=== PATIENT | male | born 1950 | race Caucasian/White ===

== ENCOUNTER → 2018-05-23 | Outpatient (CLI) | payer MEDICARE, OTHER | LOC: GMAH 11:55 | PROVIDERS: ATTEND Family Medicine | DX: I10 Essential (primary) hypertension (principal) ==

== ENCOUNTER → 2018-07-29 | Outpatient (CLI) | payer MEDICARE ==
--- NOTE | 2018-07-29 11:49 | CT ---
EXAM DESCRIPTION: Abdoment/Pelvis w/o Contrast CLINICAL HISTORY: 67 years Male, GENERALIZED ADOMINAL PAIN COMPARISON: None. TECHNIQUE: Transaxial images were obtained without intravenous or oral contrast media. Sagittal and coronal reconstruction was performed. This exam was performed according to our departmental dose-optimization program, which includes automated exposure control, adjustment of the mA and/or kV according to patient size and/or use of iterative reconstruction technique. FINDINGS: The lung bases are clear. A small cyst is observed in the left lobe of the liver. Mild hepatic steatosis is noted. No biliary ductal dilatation is observed. The gallbladder is normal in appearance. The spleen is normal in appearance. No adrenal masses are detected. The pancreas is normal in appearance. Imaging of the kidneys reveals no evidence of hydronephrosis solid mass or calcification. Simple cysts are detected in the right kidney. The largest is identified in the midpole measuring 4.9 cm in diameter. The appendix is identified and is normal in appearance. Diverticulosis of the colon is observed. There is focal inflammation at the junction of the sigmoid and descending colon consistent with diverticulitis. No drainable abscess is detected. No free fluid is observed. Fat is observed in the right inguinal canal. Mild degenerative changes are observed in the lower lumbar spine. IMPRESSION: 1. Simple cysts are detected in the left lobe the liver and right kidney. 2. Diverticulosis of the colon is observed with evidence of diverticulitis. No drainable abscess is seen. Electronically signed by: Curly Landa MD 07/29/2018 11:47 AM [employer]
== END ==
LOC: CT 10:48
PROVIDERS: ATTEND Family Medicine
DX: K57.30 Diverticulosis of large intestine without perforation or abscess without bleeding (principal); K76.89 Other specified diseases of liver; R10.84 Generalized abdominal pain

== ENCOUNTER 2018-08-14 04:47 | Emergency (ER) | payer MEDICARE ==
[2018-08-14] MEDS ORDERED: KETOROLAC TROMETHAMINE INJ 30 MG/ML VIAL IV ONE (05:07)
--- NOTE | 2018-08-14 06:19 | CT ---
CT abdomen and pelvis without contrast on 08/14/2018 CLINICAL INDICATION: Left lower quadrant pain, recent diverticulitis TECHNIQUE: Multiple axial images are obtained throughout the abdomen and pelvis without the administration of contrast. This exam was performed according to our departmental dose-optimization program, which includes automated exposure control, adjustment of the mA and/or kV according to patient size and/or use of iterative reconstruction technique. Total DLP is 1204.8 mGy*cm. COMPARISON: 07/29/2018 FINDINGS: Abdomen: There is minimal bibasilar atelectasis. There is mild fatty infiltration of the liver. A small left hepatic cyst is noted. Right renal cysts are noted. There are no renal or ureteral stones and no hydronephrosis. The unenhanced solid abdominal organs are otherwise unremarkable. There is no abdominal adenopathy. There is no free fluid or free air within the abdomen. There is new fat stranding around a diverticulum in the proximal descending colon seen on image 59 consistent with mild acute diverticulitis. There is diverticulosis. The abdominal portion of the GI tract is otherwise unremarkable. Pelvis: Previously noted inflammation around the sigmoid colon diverticulum has resolved. There is diverticulosis. The pelvic portion of the GI tract including the appendix is otherwise unremarkable. There is no free fluid in the pelvis. There is no pelvic adenopathy. Degenerative changes are noted in the spine. IMPRESSION: 1. Resolution of prior site of sigmoid colon diverticulitis with development of a new mild site of acute proximal descending colon diverticulitis. 2. Diverticulosis throughout the colon. 3. Mild fatty infiltration of the liver. Electronically signed by: Ayo Reyes 08/14/2018 6:15 AM [facility]
[2018-08-14] MEDS ORDERED: metroNIDAZOLE IV PREMIX 500MG 100 ML IVPB ONE (06:28)
[2018-08-14] MEDS ORDERED: metroNIDAZOLE IV PREMIX 500MG 500 MG in PREMIX BAG 1 BAG IVPB ONE (06:28)
[2018-08-14] MEDS ORDERED: CIPROFLOXACIN 500 MG TAB PO ONE (06:28)
--- NOTE | 2018-08-14 06:33 | ED.PDOC ---
History of Present Illness - General Chief Complaint: Abdominal Pain Stated Complaint: ABD PAIN POSS DIVERTICULITIS Time Seen by Provider: 08/14/18 04:54 Source: patient Exam Limitations: no limitations - History of Present Illness Initial Comments: the patient's 67-year-old male presenting to the emergency room secondary to recurrent left lower abdominal pain. The patient was treated for diverticulitis little more than 2 weeks ago. He was having no symptoms for the for 5 or 6 days when he started having a recurrence of some left-sided abdominal pain. No fevers. No nausea vomiting or diarrhea. He has been taking a probiotic. No evidence of sepsis. Timing/Duration: 24 hours Severity: mild Improving Factors: nothing Worsening Factors: nothing Associated Symptoms: denies symptoms Allergies/Adverse Reactions: Allergies Codeine Adverse Reaction (Verified 08/14/18 04:52) Home Medications: Ambulatory Orders Ciprofloxacin [Cipro] 500 mg PO BID #20 tab 08/14/18 Losartan Potassium [Cozaar] 100 mg PO 08/14/18 Metoprolol Tartrate [Lopressor] 100 mg PO 08/14/18 Metronidazole 500 mg PO TID #30 tab 08/14/18 Review of Systems - Review of Systems Constitutional: States: no symptoms reported EENTM: States: no symptoms reported Respiratory: States: no symptoms reported Cardiology: States: no symptoms reported Gastrointestinal/Abdominal: States: abdominal pain Genitourinary: States: no symptoms reported Musculoskeletal: States: no symptoms reported Skin: States: no symptoms reported Neurological: States: no symptoms reported Endocrine: States: no symptoms reported All other Systems: No Change from Baseline Past Medical History (General) - Patient Medical History Hx Stroke: No Hx Hypertension: Yes Hx Diabetes: No Hx Cancer: No Hx Hepatitis C: No - Vaccination History Hx Influenza Vaccination: Yes Hx Pneumococcal Vaccination: No Immunizations Up to Date: No - Social History Hx Tobacco Use: Yes Hx Alcohol Use: Yes - OCC Hx Substance Use: No Hx Substance Use Treatment: No Hx Depression: No Family Medical History - Family History Mother Family History: No Known Living Status: Physical Exam - Physical Exam General Appearance: Alert, Comfortable, No apparent distress Eye Exam: bilateral normal Ears, Nose, Throat: hearing grossly normal, normal ENT inspection Neck: full range of motion, supple Respiratory: lungs clear, normal breath sounds, no respiratory distress, no accessory muscle use Cardiovascular/Chest: normal peripheral pulses, regular rate, rhythm, no edema Peripheral Pulses: radial,right: 2+, radial,left: 2+ Gastrointestinal/Abdominal: soft, other - mild left-sided abdominal discomfort palpation. No true rebound or peritoneal signs. 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 White blood cell count is within normal limits and there is no evidence of sepsis or abscess formation. he is going to undergo another course of 10 days of metronidazole and ciprofloxacin. He needs to take MiraLAX twice daily for the next 2 days to get cleaned out. He needs to keep himself well hydrated. If he worsens rather than improves, then he will need antibiotics changed and if he starts having significant diarrhea after the laxatives are out of his system then he may require testing for C. difficile. Continue the probiotics. ER warnings were given for any worsening. Follow up with primary care doctor early this coming week. - Results/Orders Results/Orders: CT scan of abdomen and pelvis shows resolution of the previous site of diverticulitis however there is a new small sided diverticulitis just proximal to that. No abscess formation. No perforation. No other new changes. Laboratory Results - last 24 hr 08/14/18 08/14/18 08/14/18 05:22 05:22 05:22 WBC 7.6 RBC 5.02 Hgb 15.3 Hct 46.7 MCV 93.0 MCH 30.4 MCHC 32.7 L RDW 12.7 Plt Count 224 MPV 9.0 Absolute Neuts (auto) 4.70 Absolute Lymphs (auto) 1.90 Absolute Monos (auto) 0.80 Absolute Eos (auto) 0.10 Absolute Basos (auto) 0.00 Neutrophils % 61.6 Lymphocytes % 25.7 Monocytes % 10.7 H Eosinophils % 1.4 Basophils % 0.6 Sodium 140 Potassium 3.6 Chloride 104 Carbon Dioxide 24 Anion Gap 15.6 BUN 17 Creatinine 1.61 H BUN/Creatinine Ratio 10.6 Random Glucose 102 Serum Osmolality 281.1 Lactic Acid 1.7 Calcium 8.6 Total Bilirubin 1.2 H AST 32 ALT 54 Alkaline Phosphatase 73 Creatine Kinase 41 CK-MB (CK-2) 0.9 CK-MB (CK-2) % Not Reportable Troponin I < 0.02 Serum Total Protein 6.8 Albumin 3.8 Globulin 3.0 Albumin/Globulin Ratio 1.3 Departure - Departure Clinical Impression: Diverticulitis Disposition: Discharge to Home or Self Care Condition: Fair Departure Forms: ED Discharge - Pt. Copy, Patient Portal Self Enrollment Instructions: Diverticulitis (DC) Diet: regular diet - High-fiber low-fat Activity: increase activity as tolerated Referrals: Tejas Tena MD [Primary Care Provider] - 1-5 Days Prescriptions: Ciprofloxacin [Cipro] 500 mg PO BID #20 tab Metronidazole 500 mg PO TID #30 tab Home Medications: Ambulatory Orders Ciprofloxacin [Cipro] 500 mg PO BID #20 tab 08/14/18 Losartan Potassium [Cozaar] 100 mg PO 08/14/18 Metoprolol Tartrate [Lopressor] 100 mg PO 08/14/18 Metronidazole 500 mg PO TID #30 tab 08/14/18 Additional Instructions: the patient is a 67-year-old male presenting to the emergency room secondary to what appears to be a new episode of diverticulitis, as confirmed by CT scan. White blood cell count is within normal limits and there is no evidence of sepsis or abscess formation. he is going to undergo another course of 10 days of metronidazole and ciprofloxacin. He needs to take MiraLAX twice daily for the next 2 days to get cleaned out. He needs to keep himself well hydrated. If he worsens rather than improves, then he will need antibiotics changed and if he starts having significant diarrhea after the laxatives are out of his system then he may require testing for C. difficile. Continue the probiotics. ER warnings were given for any worsening. Follow up with primary care doctor early this coming week. avoid alcohol with the antibiotics and try and take them with a little bit of food.
[2018-08-14 07:40] VITALS: BP 140/88; TEMP 97.8; O2SAT 97
== END 2018-08-14 07:42 | disposition home or self-care (01) ==
LOC: ER 04:47
DX: K57.32 Diverticulitis of large intestine without perforation or abscess without bleeding (principal); I10 Essential (primary) hypertension; Z88.5 Allergy status to narcotic agent; Z87.891 Personal history of nicotine dependence; Z79.899 Other long term (current) drug therapy
CPT/HCPCS: 74176; 80053; 82550; 82553; 83605; 84484; 85025; 87040; J1885; J3490

== ENCOUNTER 2018-08-16 16:07 | Inpatient (IN) | payer MEDICARE ==
--- NOTE | 2018-08-16 16:09 | HP ---
SUPERVISING PHYSICIAN: Micha Amezcua MD CHIEF COMPLAINT: Abdominal pain. HISTORY OF PRESENT ILLNESS: Mr. Arango is a 67 year-old patient with a history of diverticulosis. On July 29, he had a flare-up, was seen in Dr. Tena's office and placed on a 10-day course of Cipro and Flagyl. He was 2 days past finish of the course of medications, was feeling well, suddenly became symptomatic again and had to be seen in the Emergency Room. He was seen in the Emergency Room this past August 14. He had a CT of the abdomen, at that point it indicated he had resolution to the previous site of sigmoid colon diverticulitis with development of a new site of acute proximal descending colon diverticulosis. He was started once again on antibiotics but continued to worsen and presented to Dr. Tena's office today with increasing pain. He is now going to be admitted for failing outpatient treatment for acute diverticulitis. He is admitted in stable condition. PAST MEDICAL HISTORY: 1. Diverticulosis with frequent flare-ups of diverticulitis within the last month. 2. 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 3 Hypertension. 4. Gastroesophageal reflux disease. PAST SURGICAL HISTORY: 1. Necrotized area resized on his left arm from a recluse bite in 1997. 2. Shattered clavicle open reduction and internal fixation on the left in 2003 with chronic nerve damage secondary to fracture of his neck in 2004. 3. Rhinoplasty. 4. Last colonoscopy was approximately 6 years previous with patient reporting all negative findings. CURRENT MEDICATIONS: 1. Lopressor 100 mg daily. 2. Losartan 100 mg daily as needed. ALLERGIES: CODEINE. FAMILY HISTORY: Mother at age 79 secondary to complications of diverticulitis. Father at age 73 from Parkinson's. He had 3 sisters, one from aneurysm at age 50. He has one who has diverticulitis, chronic obstructive pulmonary disease. One is obese with diabetes mellitus and hypertension. He has one brother that is younger and is healthy. He has 2 children, a son and daughter who are healthy. SOCIAL HISTORY: The patient lives in [place], [place]. He is . 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 He has never smoked but has used smokeless tobacco since age 17. He was a heavy alcohol drinker, approximately half of fifth to a fifth of whiskey on weekends and daily from 2007 to approximately 6 months previous. He denies any illicit drug use. He lives with one of his sisters in [place], [place]. REVIEW OF SYSTEMS: CONSTITUTIONAL: Denies fever, chills, general malaise. HEENT: Negative for headaches, vision changes, ear aches, sore throat, nasal congestion. RESPIRATORY: Negative for wheezing, coughing, shortness of breath. CARDIAC: Negative for chest pain, palpitations, tachycardia or syncopal episodes. GI: As noted in history of present illness. Left upper quadrant pain, recently treated for diverticulitis with some reported diarrhea but negative for nausea or vomiting. : Denies dysuria, hematuria, polyuria. NEUROLOGICAL: Negative for seizures, ataxia or syncopal episodes, vision changes or focal deficits. PHYSICAL EXAMINATION: VITAL SIGNS: Temperature on admission 98, pulse 54, blood pressure 126/80, respirations 16, saturation 98% on room air. Admission weight 103.9 kg. GENERAL: The patient appears a little dehydrated. He has been in some obvious distress secondary to pain but is alert. HEENT: Tympanic membranes are clear bilaterally. Oropharynx is pink, moist without any lesions. NECK: Supple with some limited range of motion but non-tender with no jugular venous distention. CHEST: Lungs clear to auscultation without rhonchi, rales, or wheezes. CARDIOVASCULAR: Regular rate and rhythm without appreciable murmurs, rubs, or gallops. ABDOMEN: Mildly distended but soft with some tenderness noted to the left upper quadrant with some rebound tenderness and guarding. GENITOURINARY: Deferred. RECTAL: Deferred. BACK: Negative for CVA tenderness or vertebral tenderness. EXTREMITIES: Without cyanosis, clubbing, or edema. NEUROLOGIC: He is alert and oriented x3. Cranial nerves II through XII are grossly intact. Facial features were symmetrical. Extraocular movements within normal limits. LABORATORY: White count 5,200, differential shows to be without a left shift. Current hemoglobin 14.6, hematocrit 43.4, platelet count 189,000. Chemistries show sodium 136, potassium 3.9, BUN 16, creatinine elevated at 1.36, glucose 106, calcium 8.7. AST was slightly elevated at 47. All other liver functions show to be within normal limits as well as amylase and lipase. Urinalysis pending. RADIOLOGY: Abdominal pelvic CT with contrast per radiology interpretation showed interval improved mild diverticulitis at the superior aspect of the descending colon and hepatic steatosis. ASSESSMENT: 1. Acute flare-up of diverticulosis with diverticulitis involving the superior aspect of the descending colon, having failed to respond to treatment measures as an outpatient to include antibiotics with Levaquin and ciprofloxacin. 2. Abdominal pain secondary to #1. 3. Hepatic steatosis in a previous drinker as noted on current CT scan. 4. History of hypertension. 5. History of gastroesophageal reflux disease. 6. History of smokeless tobacco use, nicotine addiction. 7. 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 8, Acute kidney injury, prerenal azotemia secondary to dehydration. PLAN: The patient will be directly admitted for treatment of diverticulitis and failed outpatient treatment measures. He will be made n.p.o. He will be started on some IV fluids to treat the dehydration with lactated ringers at 150. Will start him on Flagyl 500 every 8 hours as well as 750 of Levaquin every 24 hours. Will give him Phenergan and Zofran as needed for antiemetics and work to control his pain on on morphine as tolerated. We will review the medications and update those and restart those as soon as they have been verified. He will be on DVT prophylaxis with Levaquin as per protocol and Lovenox per protocol. Will anticipate length of stay to be at least 2 to 3 days. Will repeat labs in the morning and abdominal series. Until he can transition to outpatient management, we will continue to monitor and treat as needed. #[id number] [facility]
[2018-08-16] MEDS ORDERED: SODIUM CHLORIDE 0.9% (FLUSH) 10 ML SYG IV PRN (17:01)
[2018-08-16] MEDS ORDERED: ONDANSETRON INJ 4 MG/2 ML VIAL IV PRN (17:01)
[2018-08-16] MEDS ORDERED: MORPHINE SULFATE INJ 10 MG/ML VIAL IV PRN (17:01)
[2018-08-16] MEDS ORDERED: PROMETHAZINE HCL INJ 12.5 MG in SODIUM CHLORIDE 0.9% 50ML 50 ML IVPB PRN (17:04)
[2018-08-16] MEDS ORDERED: IV SET AND CAP CHANGE INJ INJ SCH (17:30)
[2018-08-16] MEDS ORDERED: levoFLOXacin 750MG IV 750 MG in PREMIX BAG 1 BAG IVPB SCH (18:00)
[2018-08-16] MEDS: LACTATED RINGERS 1,000 ML IVS PRN (18:09)
[2018-08-16] MEDS ORDERED: metroNIDAZOLE IV PREMIX 500MG 100 ML IVPB ONE ×2 (18:19→19:39)
[2018-08-16] MEDS ORDERED: diphenhydrAMINE HCL 50 MG/ML VIAL IV ONE (19:06)
--- NOTE | 2018-08-16 19:30 | CT ---
EXAM: CT Abdomen and Pelvis With Intravenous Contrast CLINICAL HISTORY: The patient is 67 years old and is Male; Acute diverticulitis failing to respond to [place] TECHNIQUE: Axial computed tomography images of the abdomen and pelvis with intravenous contrast. Sagittal and coronal reformatted images were created and reviewed. This CT exam was performed using one or more of the following dose reduction techniques: automated exposure control, adjustment of the mA and/or kV according to patient size, and/or use of iterative reconstruction technique. COMPARISON: July 29, 2018 and August 14, 2018 FINDINGS: Lung bases: Unremarkable. No mass. No consolidation. ABDOMEN: Liver: Subcentimeter liver hypodensity in the left lower liver, likely cyst. Diffuse low-attenuation throughout the liver consistent with hepatocellular disease/fatty infiltration. No focal liver lesion seen. Gallbladder and bile ducts: Unremarkable. No calcified stones. No ductal dilation. Pancreas: Unremarkable. No mass. No ductal dilation. Spleen: Unremarkable. No splenomegaly. Adrenals: Unremarkable. No mass. Kidneys and ureters: Unchanged right renal cysts. No hydronephrosis. Stomach and bowel: Interval improved mild diverticulitis at the superior aspect of the descending colon. No obstruction. PELVIS: Appendix: The appendix is seen and is within normal limits Bladder: Unremarkable. No mass. Reproductive: Unremarkable as visualized. ABDOMEN and PELVIS: Intraperitoneal space: Unremarkable. No free air. No significant fluid collection. Bones/joints: No acute fracture. No dislocation. Soft tissues: Unremarkable. Vasculature: Unremarkable. No abdominal aortic aneurysm. Lymph nodes: Unremarkable. No enlarged lymph nodes. IMPRESSION: 1. Interval improved mild diverticulitis at the superior aspect of the descending colon. 2. Hepatic steatosis. Electronically signed by: Moe Giang MD 08/16/2018 7:27 PM [facility]
[2018-08-16] MEDS: metroNIDAZOLE IV PREMIX 500MG 500 MG in PREMIX BAG 1 BAG IVPB SCH (20:48)
[2018-08-17] MEDS: metroNIDAZOLE IV PREMIX 500MG 500 MG in PREMIX BAG 1 BAG IVPB SCH ×3 (01:54→17:50)
[2018-08-17] MEDS: LACTATED RINGERS 1,000 ML IVS PRN (04:40)
--- NOTE | 2018-08-17 07:56 | RAD ---
EXAM DESCRIPTION: Abdomen Flat Upright CLINICAL HISTORY: 67 years Male, diverticulitis COMPARISON: None. FINDINGS: Supine and upright views of the abdomen. Bowel gas pattern normal. No free intraperitoneal air. Lung bases clear. No mass or calculus. IMPRESSION: Negative Electronically signed by: Hank Lira MD 08/17/2018 7:53 AM [facility]
[2018-08-17] MEDS ORDERED: NON-FORMULARY MEDICATION 1 EA MIS (Metoprolol Tartrate [Lopressor] 100 MG) PO SCH (09:00)
[2018-08-17] MEDS ORDERED: METOPROLOL TARTRATE 50 MG TAB ONE (09:10)
[2018-08-17] MEDS ORDERED: metroNIDAZOLE IV PREMIX 500MG 100 ML IVPB ONE ×3 (09:13→19:18)
[2018-08-17] MEDS: ENOXAPARIN SODIUM 40 MG/0.4 ML SYG SUBCU SCH (09:44)
[2018-08-17] MEDS: METOPROLOL TARTRATE 50 MG TAB PO SCH (09:44)
[2018-08-17] MEDS ORDERED: levoFLOXacin 750MG IV 750 MG in PREMIX BAG 1 BAG IVPB SCH (16:00)
--- NOTE | 2018-08-17 18:07 | PN ---
DATE: 08/17/18 SUPERVISING PHYSICIAN: Micha Amezcua M.D. SUBJECTIVE: The patient today feels much better. He says the pain is essentially gone. I discussed with him that we would go ahead and advance him to clear liquid diet today with antibiotics and work to advance his diet. Hopefully get him home tomorrow or Wednesday. He does remain afebrile. He did have a stool though that was normal caliber. OBJECTIVE: VITAL SIGNS: Temperature 98, pulse 58, blood pressure 151/90, respirations 16, satting 94% on room air. I's and O's show a positive balance of 900 with 1200 in, 300 out. Weight is 104.1 kg. CHEST: Lugs are clear to auscultation. HEART: Regular rate and rhythm. ABDOMEN: Soft, non-tender. Positive bowel sounds. EXTREMITIES: Without any cyanosis, clubbing, or edema. NEUROLOGIC: He is alert and oriented times three. LABORATORY: Chemistries show normal electrolytes today with BUN 15, creatinine is slightly up to 1.51. RADIOLOGY: Abdominal x-ray this morning per radiology interpretation shows negative exam. ASSESSMENT: 1. Acute diverticulitis having failed to respond to outpatient treatment measures involving the superior aspect of the descending colon, currently on Levaquin and Flagyl showing improvement with parenteral antibiotics. 2. Abdominal pain secondary to #1, resolving with treatment. 3. Hepatic steatosis in a previous drinker as noted on current CT scan. 4. History of hypertension. 5. History of gastroesophageal reflux disease. 6. History of chronic tobacco abuse in the form of smokeless tobacco. 7. 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 8. Acute kidney injury, prerenal azotemia due to dehydration showing slow improvement with treatment. PLAN: Will go ahead and saline lock the patient today and start him on oral therapy with clear liquids. I encouraged him to drink water. I have also encouraged him to ambulate as much as possible. He will, of course, have Phenergan and Zofran and morphine as needed for any discomfort or nausea. Hopefully be able to advance his diet tomorrow and discharge later tomorrow afternoon or if not, Wednesday. Until we can transition to outpatient management, will continue to monitor and treat as needed. [facility][id number] [facility]
[2018-08-18] MEDS: metroNIDAZOLE IV PREMIX 500MG 500 MG in PREMIX BAG 1 BAG IVPB SCH ×2 (01:58→11:05)
[2018-08-18] MEDS: METOPROLOL TARTRATE 50 MG TAB PO SCH (08:30)
[2018-08-18] MEDS ORDERED: metroNIDAZOLE IV PREMIX 500MG 100 ML IVPB ONE (08:55)
[2018-08-18] MEDS: ENOXAPARIN SODIUM 40 MG/0.4 ML SYG SUBCU SCH (09:08)
[2018-08-18 13:35] VITALS: BP 126/86; TEMP 97.6; O2SAT 99
--- NOTE | 2018-08-29 19:47 | DS ---
SUPERVISING PHYSICIAN: Micha Amezcua M.D. ADMISSION DIAGNOSIS: 1. Acute flare-up of diverticulosis with diverticulitis involving the superior aspect of the descending colon, having failed to respond to treatment measures as an outpatient to include antibiotics with Levaquin and ciprofloxacin. 2. Abdominal pain secondary to #1. 3. Hepatic steatosis in a previous drinker as noted on current CT scan. 4. History of hypertension. 5. History of gastroesophageal reflux disease. 6. History of smokeless tobacco use, nicotine addiction. 7. 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 8, Acute kidney injury, prerenal azotemia secondary to dehydration. DISCHARGE DIAGNOSIS: 1. Acute diverticulitis having failed to respond to outpatient treatment measures involving the superior aspect of the descending colon, currently on Levaquin and Flagyl showing improvement with parenteral antibiotics. 2. Abdominal pain secondary to #1, resolving with treatment. 3. Hepatic steatosis in a previous drinker as noted on current CT scan. 4. History of hypertension. 5. History of gastroesophageal reflux disease. 6. History of chronic tobacco abuse in the form of smokeless tobacco. 7. 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 8. Acute kidney injury, prerenal azotemia due to dehydration showing slow improvement with treatment. REASON FOR HOSPITALIZATION: Mr. Arango is a 67 year-old patient with a history of diverticulosis. On July 29, he had a flare-up, was seen in Dr. Tena's office and placed on a 10-day course of Cipro and Flagyl. He was 2 days past finish of the course of medications, was feeling well, suddenly became symptomatic again and had to be seen in the Emergency Room. He was seen in the Emergency Room this past August 14. He had a CT of the abdomen, at that point it indicated he had resolution to the previous site of sigmoid colon diverticulitis with development of a new site of acute proximal descending colon diverticulosis. He was started once again on antibiotics but continued to worsen and presented to Dr. Tena's office today with increasing pain. He is now going to be admitted for failing outpatient treatment for acute diverticulitis. He is admitted in stable condition. LABORATORY STUDIES: White count on admission was 5,200, hemoglobin 14.6, hematocrit 43.4, platelet count 189,000. Differential was without a left shift. Chemistries showed normal electrolytes both on admission and discharge. Initial creatinine was 1.36, at discharge 1.38, BUN 16. Liver functions were showing within normal limits except for a slightly elevated AST at 47. Amylase and lipase were both normal. Urinalysis was within normal limits. RADIOLOGY: Abdominal/pelvis CT with contrast per radiology interpretation showed interval improved mild diverticulitis of the superior aspect of the descending colon and hepatic steatosis. Please see that full report for full details. He also had an abdominal x-ray on the after admission and per radiology interpretation showed negative per radiology. HOSPITAL COURSE: Mr. Arango was admitted on 08/16/18 for acute diverticulitis. He was started on medications to include antibiotic coverage with Flagyl and Levaquin. He was made NPO. He was given IV fluids, pain management, and antiemetics. His diet was slowly advanced as his pain resolved and clinically showed improvement. On the morning of discharge he was able to tolerate a diet without any complications, therefore he was felt to be able to continue with outpatient management. PLAN: Mr. Arango was discharged on 08/18/18 with instructions to followup with Dr. Tena on 08/23/18 at 10:00 AM. He was to resume his antibiotics as directed with the Flagyl and Levaquin and told to return to the hospital should he have any concerning symptoms. Diet at discharge was low residual diet with education material provided. Activity is increase as tolerated. Medications at discharge included Ciprofloxacin and Flagyl which was started prior to admission and to continue for a full day course of 10 days. His home medications included: 1. Cozaar 100 mg daily as needed. 2. Lopressor 100 mg daily. Condition on discharge was stable and improving. DISPOSITION: The patient was discharged to the care of family. [id number]
== END 2018-08-18 16:10 | disposition home or self-care (01) | DRG 392 ==
LOC: MS 16:07
PROVIDERS: ADMIT Family Medicine; ATTEND Nurse Practitioner Family
DX: K57.32 Diverticulitis of large intestine without perforation or abscess without bleeding (principal); N17.9 Acute kidney failure, unspecified; I10 Essential (primary) hypertension; K21.9 Gastro-esophageal reflux disease without esophagitis; G62.1 Alcoholic polyneuropathy; K76.0 Fatty (change of) liver, not elsewhere classified; E86.0 Dehydration; F10.10 Alcohol abuse, uncomplicated; Z88.5 Allergy status to narcotic agent; Z87.891 Personal history of nicotine dependence

== ENCOUNTER → 2018-09-27 | Outpatient (CLI) | payer MEDICARE ==
--- NOTE | 2018-09-27 17:32 | MRI ---
EXAM DESCRIPTION: Lumbar Spine w/o Contrast : Magnetic Resonance Imaging. CLINICAL HISTORY: RADICULOPATHY COMPARISON: None. TECHNIQUE: Multiplanar, multiple standard sequences, non contrast MRI, lumbar spine. FINDINGS: L5-S1: Posterior disc space loss with disc desiccation. Small Schmorl's node superior S1 endplate. Posterior midline disc bulge with AP canal diameter 12 mm. Minimal hypertrophic right facet arthrosis and enlarged flavum ligament with moderate narrowing of the foramen. Mild narrowing left foramen. L4-L5: Significant disc space loss more left than right with Modic type II endplate reactive changes. Superior midline bulge and osteophytes and disc remnant. Bilateral hypertrophic facet arthrosis and flavum ligament enlarged with AP canal diameter 11 mm. Right foraminal moderate narrowing and mild left foraminal narrowing. L3-L4: Disc desiccation with posterior disc space loss and posterior endplate Modic type II changes. Tiny posterior midline disc and osteophyte bulge. Bilateral mild hypertrophic facet arthrosis with enlarged flavum ligaments. Mild canal narrowing. Bilateral disc osteophyte encroachment on the foramina with mild narrowing on the left and borderline right foraminal stenosis. L2-L3: Mild disc desiccation with no significant bulging. Left inferior L2 Schmorl's node, surrounded by marrow edema. Minimal hypertrophic facet arthrosis and enlarged flavum ligaments. No significant canal narrowing. L1-L2: Minimal disc desiccation with disc space preserved. Tiny left paracentral disc bulge. Minimal hypertrophic facet arthrosis and enlarged flavum ligaments bilaterally. Borderline canal narrowing with bilateral foramina patent. T12-L1: Disc space preserved with normal signal in the disc. Posterior elements unremarkable. Canal and foramina are patent. Conus terminates just above the disc space. Minimal lumbosacral levoscoliosis and dextroscoliosis of the thoracolumbar spine. Paravertebral soft tissues paraspinal muscle atrophy. Normal marrow signal in the remaining vertebral bodies and the posterior elements. Vertebral bodies are not compressed at any level. IMPRESSION: 1. Multiple levels of foraminal narrowing and disc desiccation. Also multiple levels of hypertrophic facet arthrosis and enlarged flavum ligaments. 2. Diffuse L4-L5 disc space loss and spondylosis. Moderate narrowing of the canal. No definite nerve root impingement. 3. Posterior moderate spondylosis at L3-4. Borderline right foraminal stenosis. 4. Large Schmorl's node on the left inferior L2 endplate with surrounding marrow edema. No compression abnormality of the vertebral body. Electronically signed by: Abraham Sewell MD 09/27/2018 5:28 PM CDT
== END ==
LOC: MRI 09:10
PROVIDERS: ATTEND Family Medicine
DX: M51.16 Intervertebral disc disorders with radiculopathy, lumbar region (principal); M47.896 Other spondylosis, lumbar region; M51.46 Schmorl's nodes, lumbar region

== ENCOUNTER → 2018-12-27 | Outpatient (CLI) | payer MEDICARE ==
--- NOTE | 2018-12-27 09:38 | MRI ---
Study: MRI of the Left Hip. Indication: LEFT HIP PAIN Technique: Multiplanar, multi sequence MRI of the left hip was obtained without intravenous contrast. Comparison: CT pelvis November 04, 2018. Findings: No acute fracture or osteonecrosis of the left hip. Mild grade 4 chondrosis and subchondral marrow change lateral margin acetabular roof with grade 3 chondral thinning throughout the remainder of the joint. Tiny joint line osteophytes. Degeneration anterior superior left hip labrum with complex tearing. Tiny cam lesion. Tiny left hip effusion. Lower lumbar fusion construct. Tendinosis bilateral hamstring tendon origins. No high-grade pelvic tendon tear. Mild pubic symphysis osteoarthritis. At least mild right hip osteoarthritis present as well. Impression: Moderate left hip osteoarthritis with associated labral degeneration and a tiny joint effusion. No acute fracture or osteonecrosis. Additional findings as above. Electronically signed by: Aditya Torres MD 12/27/2018 9:36 AM CDT
== END ==
LOC: MRI 07:48
PROVIDERS: ATTEND Family Medicine
DX: M16.12 Unilateral primary osteoarthritis, left hip (principal)

== ENCOUNTER → 2019-01-04 | Outpatient (CLI) | payer MEDICARE ==
--- NOTE | 2019-01-04 17:56 | CT ---
EXAM DESCRIPTION: Abdomen/Pelvis w/o Contrast: Computed Tomography. CLINICAL HISTORY: 68 years Male GENERALIZED ABDOMINAL PAIN COMPARISON: CT scan of the abdomen with IV contrast 11/04/2018. TECHNIQUE: Spiral-axial scans 2.5 x 2.5 mm intervals through the abdomen and pelvis with water soluble barium oral contrast. No IV contrast. Coronal and sagittal 2.0 mm reconstructions. Total Exam DLP: 1312.23 mGy-cm. This exam was performed according to our departmental CT dose-optimization program which includes automated exposure control, adjustment of the mA and/or kV according to patient size and/or use of iterative reconstruction technique; to reduce radiation dose to as low as reasonably achievable (ALARA). FINDINGS: Lung bases and pleura: Negative. Liver, stomach, spleen, and adrenal glands: Stable subcentimeter cyst in the left hepatic lobe. Oral contrast concentrated in the stomach which is also distended with fluid and fluid with scatter artifact. Other solid organs negative. Pancreas, Gallbladder, and Ducts: Gallbladder minimally distended larger than on the prior study. Normal caliber common bile duct. Fatty pancreas otherwise negative. Kidneys and Ureters: 3 cysts again seen in the right kidney stable in size with no hydronephrosis or radiodense stones. Left kidney and ureters unremarkable Mesentery: Negative. Aorta: Minimal atherosclerotic calcifications. Small Bowel: Contains oral contrast. No significant distention or air-fluid levels. Terminal Ileum/Cecum: Normal caliber TI with oral contrast. Fecal material in the cecum. Normal caliber of the appendix and normal appearance of the surrounding fat. Colon: Diffuse moderate fecal matter, almost entire colon, with scattered diverticula from the ascending colon to the sigmoid. No complications. Pelvic Organs: Urinary bladder with no radiodense stones. Prostate gland abutting the seminal vesicles and the bladder. No free fluid. Spine and Bony Pelvis: Posterior fusion construct L3 and L5 with bilateral connecting rods. Minimal spondylosis in the included thoracic spine. Mild thoracolumbar dextroscoliosis. Hypertrophic bilateral superior lateral acetabular facets with over coverage of the femoral heads, more on the left and joint space narrowing. Abdominal Wall/Back Soft Tissues: Minimal anterior midline bulge of the abdominal cavity at the raphe and umbilicus with minimal diastases been no definite hernia or bowel. Right fatty inguinal hernia not containing bowel. IMPRESSION: 1. Diffuse diverticulosis with no inflammatory changes or other complications. No free air or free fluid in the abdomen or pelvis. Moderate constipation but no obstruction. 2. Stable small cyst in the left hepatic lobe, otherwise negative. Stable cysts in the right kidney, otherwise negative. 3. Stable lumbar fusion construct. Hypertrophic superior lateral left acetabular facet with over coverage of the femoral head which could be causing femoral acetabular impingement. 4. Minimal distention of the gallbladder but no radiodense stones or fatty inflammatory changes. Normal caliber of the duct. COMMUNICATION: The findings were discussed directly by phone with Dr. Tejas Tena at approximately 1750 hours, on January 04, 2019. Electronically signed by: Abraham Sewell MD 01/04/2019 5:54 PM CDT
== END ==
LOC: CT 15:08
PROVIDERS: ATTEND Family Medicine
DX: K57.90 Diverticulosis of intestine, part unspecified, without perforation or abscess without bleeding (principal); K59.00 Constipation, unspecified; K76.89 Other specified diseases of liver; N28.1 Cyst of kidney, acquired; Z98.1 Arthrodesis status

== ENCOUNTER 2019-01-08 04:50 | Emergency (ER) | payer MEDICARE ==
[2019-01-08] MEDS ORDERED: KETOROLAC TROMETHAMINE INJ 30 MG/ML VIAL IM ONE (05:13)
--- NOTE | 2019-01-08 05:22 | ED.PDOC ---
History of Present Illness - General Chief Complaint: Problem Stated Complaint: RUQ pain radiating to back Time Seen by Provider: 01/08/19 05:00 Source: patient Exam Limitations: no limitations - History of Present Illness Initial Comments: the patient's 68-year-old male presenting secondary to right upper quadrant and right flank pain that has been progressive over the last week. He does have a history of diverticulitis. He saw his primary care doctor earlier this week and was placed on ciprofloxacin and metronidazole for the possibility of gallbladder disease. He did have a CT scan with his primary care doctor which was not entirely conclusive for any acute pathology. He apparently did have blood work done however we do not have results of that. No fevers. Pain is not worse with eating. It is worse with movement. CT scan does show some moderate constipation. No history of pancreatitis. No history of appendicitis. He reports that he feels like the pain is underneath his anterior right rib cage however pain localizes more centrally and a little bit lower with palpation. No definite rebound or peritoneal signs. No palpable mass. No weig ht loss. Additionally he reports some red colored urine here tonight. Timing/Duration: 1 week Severity: moderate Improving Factors: nothing Worsening Factors: movement Associated Symptoms: denies symptoms Allergies/Adverse Reactions: Allergies Morphine Allergy (Verified 01/08/19 05:23) Codeine Adverse Reaction (Verified 01/08/19 05:23) Home Medications: Ambulatory Orders Metoprolol Tartrate [Lopressor] 100 mg PO BID 08/14/18 Naproxen 500 mg PO BID PRN 01/08/19 Simvastatin [Zocor] 20 mg PO DAILY 01/08/19 Review of Systems - Review of Systems Constitutional: States: no symptoms reported EENTM: States: no symptoms reported Respiratory: States: no symptoms reported Cardiology: States: no symptoms reported Gastrointestinal/Abdominal: States: abdominal pain Musculoskeletal: States: back pain Skin: States: no symptoms reported Neurological: States: no symptoms reported Endocrine: States: no symptoms reported All other Systems: No Change from Baseline Past Medical History (General) - Patient Medical History Hx Seizures: No Hx Stroke: No Hx Asthma: No Hx of COPD: No Hx Congestive Heart Failure: No Hx Pacemaker: No Hx Hypertension: Yes Hx Diabetes: No Hx Cancer: No Hx Hepatitis C: No Hx MRSA: No - Vaccination History Hx Influenza Vaccination: Yes Hx Pneumococcal Vaccination: No - Social History Hx Tobacco Use: No Hx Alcohol Use: No Hx Substance Use: No Hx Substance Use Treatment: No Hx Depression: No Hx Physical Abuse: No Hx Emotional Abuse: No Family Medical History - Family History Mother Family History: No Known Living Status: Physical Exam - Physical Exam General Appearance: Alert, Anxious, No apparent distress Eye Exam: bilateral normal Ears, Nose, Throat: hearing grossly normal, normal ENT inspection, normal pharynx Neck: full range of motion, supple Respiratory: lungs clear, normal breath sounds, no respiratory distress, no accessory muscle use Cardiovascular/Chest: normal peripheral pulses, no edema, other - regular rate Peripheral Pulses: radial,right: 2+, radial,left: 2+, dorsalis pedis,right: 2+, dorsalis pedis,left: 2+ Gastrointestinal/Abdominal: soft, other - see history of present illness Rectal Exam: deferred Back Exam: no vertebral tenderness, CVA tenderness (R) Extremity: normal range of motion, non-tender, normal inspection, no pedal edema, normal capillary refill 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 Source of this is not entirely certain. He does still have some significant constipation on x-ray and is going to be written for a gallon of GoLYTELY to take today. It is possible he may still be having some residual diverticulitis. He does need to continue his oral antibiotic therapy. laboratory work showed no elevation of his white blood cell count or liver function tests. Urinalysis is clean other than indicating some mild dehydration. he had a CT scan of his abdomen and pelvis a couple of days ago that failed to show any acute pathology otherwise either. He does need to increase his fluid intake. I would recommend that he follow-up with his primary care doctor in a couple of days. ER warnings were given for any significant worsening. - Results/Orders Results/Orders: acute abdominal series shows constipation. No obvious obstruction. No free air. Laboratory Tests 01/08/19 01/08/19 01/08/19 05:12 05:12 05:12 WBC 5.6 RBC 5.02 Hgb 15.5 Hct 46.5 MCV 92.6 MCH 30.8 MCHC 33.3 RDW 13.2 Plt Count 226 MPV 8.7 Absolute Neuts (auto) 2.90 Absolute Lymphs (auto) 1.80 Absolute Monos (auto) 0.60 Absolute Eos (auto) 0.20 Absolute Basos (auto) 0.10 Neutrophils % 51.6 Lymphocytes % 32.8 Monocytes % 11.1 H Eosinophils % 3.5 Basophils % 1.0 Sodium 139 Potassium 3.9 Chloride 105 Carbon Dioxide 25 Anion Gap 12.9 BUN 15 Creatinine 1.31 H BUN/Creatinine Ratio 11.5 Random Glucose 113 H Serum Osmolality 279.2 Lactic Acid 1.3 Calcium 9.0 Magnesium 1.8 Total Bilirubin 0.9 AST 25 ALT 28 Alkaline Phosphatase 68 Creatine Kinase 49 CK-MB (CK-2) 1.1 CK-MB (CK-2) % Not Reportable Troponin I < 0.02 Serum Total Protein 7.0 Albumin 4.2 Globulin 2.8 Albumin/Globulin Ratio 1.5 Amylase 47 Lipase 33 Urine Color Urine Appearance Urine pH Ur Specific [place] Urine Protein Urine Glucose (UA) Urine Ketones Urine Blood Urine Nitrite Urine Bilirubin Urine Urobilinogen Ur Leukocyte Esterase Urine RBC Urine WBC Ur Epithelial Cells Urine Bacteria Urine Mucus 01/08/19 05:27 WBC RBC Hgb Hct MCV MCH MCHC RDW Plt Count MPV Absolute Neuts (auto) Absolute Lymphs (auto) Absolute Monos (auto) Absolute Eos (auto) Absolute Basos (auto) Neutrophils % Lymphocytes % Monocytes % Eosinophils % Basophils % Sodium Potassium Chloride Carbon Dioxide Anion Gap BUN Creatinine BUN/Creatinine Ratio Random Glucose Serum Osmolality Lactic Acid Calcium Magnesium Total Bilirubin AST ALT Alkaline Phosphatase Creatine Kinase CK-MB (CK-2) CK-MB (CK-2) % Troponin I Serum Total Protein Albumin Globulin Albumin/Globulin Ratio Amylase Lipase Urine Color Dk yellow Urine Appearance Clear Urine pH 5.5 Ur Specific [place] >= 1.030 Urine Protein Trace Urine Glucose (UA) Negative Urine Ketones Trace Urine Blood Negative Urine Nitrite Positive H Urine Bilirubin Small H Urine Urobilinogen 0.2 Ur Leukocyte Esterase Negative Urine RBC 1-3 Urine WBC 1-3 Ur Epithelial Cells 0 Urine Bacteria Rare Urine Mucus Moderate Departure - Departure Clinical Impression: Abdominal pain Qualifiers: Abdominal location: right upper quadrant Qualified Code(s): R10.11 - Right upper quadrant pain Constipation Qualifiers: Constipation type: unspecified constipation type Qualified Code(s): K59.00 - Constipation, unspecified Disposition: Discharge to Home or Self Care Condition: Fair Departure Forms: ED Discharge - Pt. Copy, Patient Portal Self Enrollment Instructions: Constipation, Adult (DC) Diet: regular diet Activity: increase activity as tolerated Referrals: Tejas Tena MD [Primary Care Provider] - 1-2 Weeks Home Medications: Ambulatory Orders Metoprolol Tartrate [Lopressor] 100 mg PO BID 08/14/18 Naproxen 500 mg PO BID PRN 01/08/19 Simvastatin [Zocor] 20 mg PO DAILY 01/08/19 Additional Instructions: the patient's a 68-year-old male presenting to emergency room secondary to persistent right upper quadrant and right flank pain. Source of this is not entirely certain. He does still have some significant constipation on x-ray and is going to be written for a gallon of GoLTapZenLY to take today. It is possible he may still be having some residual diverticulitis. He does need to continue his oral antibiotic therapy. laboratory work showed no elevation of his white blood cell count or liver function tests. Urinalysis is clean other than indicating some mild dehydration. he had a CT scan of his abdomen and pelvis a couple of days ago that failed to show any acute pathology otherwise either. He does need to increase his fluid intake. I would recommend that he follow-up with his primary care doctor in a couple of days. certainly if symptoms persist or worsen then repeat or additional evaluation including ultrasound and/or HIDA scan may be warranted. ER warnings were given for any significant worsening.
[2019-01-08 05:23] VITALS: TEMP 97.8
[2019-01-08] MEDS ORDERED: MAGNESIUM HYDROXIDE 30 ML UD PO ONE (06:08)
[2019-01-08 06:24] VITALS: BP 138/93; O2SAT 98
--- NOTE | 2019-01-08 06:33 | RAD ---
EXAM: Acute abdominal series. INDICATION: Abdominal pain, acute. COMPARISON: 08/17/2018. FINDINGS: Cardiac silhouette: Unremarkable. Eva: Unremarkable. Lobar consolidation: None. Pleural effusion: None. Pneumothorax: None. Other: None. Intraperitoneal free air: Negative. Bowel: No dilated loops of small bowel or air-fluid levels. Moderate amount of stool within the colon. Bones: Postsurgical changes to the lower lumbar spine. Other: No abnormal calcifications are seen. IMPRESSION: 1. Nonspecific, nonobstructed bowel gas pattern. Electronically signed by: Salomon Nieves MD 01/08/2019 6:30 AM CDT Workstation: [id number]
== END 2019-01-08 06:40 | disposition home or self-care (01) ==
LOC: ER 04:50
DX: K59.00 Constipation, unspecified (principal); R10.11 Right upper quadrant pain; I10 Essential (primary) hypertension; Z79.899 Other long term (current) drug therapy; Z88.5 Allergy status to narcotic agent
CPT/HCPCS: 74019; 80053; 81001; 82150; 82550; 82553; 83605; 83690; 83735; 84484; 85025; 87086; J1885

== ENCOUNTER 2019-01-10 05:32 | Day surgery (SDC) | payer MEDICARE ==
[2019-01-10] MEDS ORDERED: LIDOCAINE 1% 10 ML VIAL INJ ONE (07:00)
[2019-01-10] MEDS ORDERED: PROPOFOL 200 MG/20 ML VIAL IV ONE (07:00)
[2019-01-10] MEDS ORDERED: LACTATED RINGERS 1,000 ML ONE (07:16)
[2019-01-10] MEDS ORDERED: methylPREDNISolone ACETATE 80 MG/ML VIAL ONE (08:23)
[2019-01-10] MEDS ORDERED: BUPIVACAINE 0.25% INJ 30 ML VIAL INJ ONE (08:23)
[2019-01-10] MEDS ORDERED: LIDOCAINE 1% W/ EPINEPHRINE 20 ML VIAL INJ ONE (08:23)
[2019-01-10 09:39] VITALS: O2SAT 95
[2019-01-10 09:44] VITALS: BP 146/85; TEMP 96
--- NOTE | 2019-01-12 08:18 | OP ---
DATE OF PROCEDURE: 01/10/19 PREOPERATIVE DIAGNOSIS: 1. Hip osteoarthritis. POSTOPERATIVE DIAGNOSIS: 1. Hip osteoarthritis. PROCEDURE: 1. Intraarticular injection. SURGEON: Rogers Hauser MD. GROUP CONTRACT ANALYST: Abraham Arciniega CST, SA-C. ANESTHESIA: Conscious sedation. COMPLICATIONS: None. FINDINGS: Osteoarthritis of the hip. INDICATION: Mr. Arango has a history of pain in the hip associated with osteoarthritis. We talked about options and at this point he has elected to undergo injection. After discussing the risks, benefits and alternatives to that, the patient has given informed consent for that. PROCEDURE: The patient was brought to the Operating Room and placed in supine position. Conscious sedation was administered and the leg was flexed, abducted and externally rotated. The groin was prepped and fluoroscopic imaging was used to confirm needle placement into the hip joint through a medial portal. Once placement had been confirmed, a combination of lidocaine and Depo-Medrol were injected into the joint. After injection, the needle was withdrawn. Pressure was held on the injection site. A sterile band-aid was placed. The patient was then taken back to the Day Surgery Unit. POSTOPERATIVE PLAN: The patient will be weight-bearing as tolerated. The patient will followup with us in 2 weeks. [facility][id number] [facility]
== END 2019-01-10 09:35 | disposition home or self-care (01) ==
LOC: AMB 05:32
PROVIDERS: ATTEND Orthopaedic Surgery
DX: M16.12 Unilateral primary osteoarthritis, left hip (principal); Z88.5 Allergy status to narcotic agent; Z88.8 Allergy status to other drugs, medicaments and biological substances; Z98.1 Arthrodesis status
CPT/HCPCS: 01200; 20610; 76000; 80307; 87070; J1030; J7120

== ENCOUNTER → 2019-01-23 | Outpatient (CLI) | payer MEDICARE ==
--- NOTE | 2019-01-23 10:19 | US ---
EXAM DESCRIPTION: Venous,Lower Extremity LT: ULTRASOUND. CLINICAL HISTORY: Edema. Left lower extremity. COMPARISON: None Available. TECHNIQUE: Yanez-scale and doppler sonographic evaluation of the deep venous system of the left lower extremity. FINDINGS: Doppler evaluation shows normal color flow and normal phasicity and augmentation of the left common femoral vein, femoral vein, popliteal vein, greater saphenous vein, peroneal, and posterior tibial vein. The left lower extremity deep veins were completely compressible; normal occlusion with transducer pressure. Yanez-scale survey showed no echogenic thrombus within these veins. IMPRESSION: 1. Duplex ultrasound evaluation of the left lower extremity deep venous system showing no evidence of thrombosis. Electronically signed by: Abraham Sewell MD 01/23/2019 10:17 AM CDT
== END ==
LOC: US 08:30
PROVIDERS: ATTEND Orthopaedic Surgery
DX: R60.9 Edema, unspecified (principal)

== ENCOUNTER → 2019-06-05 | Outpatient (CLI) | payer MEDICARE ==
--- NOTE | 2019-06-05 15:06 | MRI ---
Study: MRI of the Right Shoulder. Indication: PAIN IN RIGHT SHOULDER Technique: Multiplanar, multi sequence MRI of the right shoulder was obtained without intravenous contrast. Comparison: None. Findings: Moderate hypertrophic AC joint osteoarthritis. Type I acromion with mild lateral downsloping. Trace subacromial/subdeltoid bursal fluid. Supraspinatus and infraspinatus tendinosis with scattered bursal surface fraying throughout both tendons. Subscapularis tendinosis with low-grade insertional tearing superiorly. Teres minor tendon intact. Minimal atrophy and grade 1 fatty trace rotator cuff musculature. Long head biceps tendon intact. Circumferential labral truncation and degeneration. Mild glenohumeral joint osteoarthritis with a tiny joint effusion. No acute fracture. Impression: Supraspinatus and infraspinatus tendinosis with scattered bursal surface fraying of both tendons. Subscapularis tendinosis with low-grade interstitial tearing superiorly. Minimal atrophy and grade 1 fatty infiltration rotator cuff musculature. Circumferential labral truncation and degeneration. Mild glenohumeral joint osteoarthritis with a tiny joint effusion. Moderate hypertrophic AC joint osteoarthritis. Electronically signed by: Aditya Torres MD 06/05/2019 3:04 PM [facility]
== END ==
LOC: MRI 09:22
PROVIDERS: ATTEND Family Medicine
DX: M19.011 Primary osteoarthritis, right shoulder (principal); M75.81 Other shoulder lesions, right shoulder; M62.511 Muscle wasting and atrophy, not elsewhere classified, right shoulder

== ENCOUNTER → 2019-07-05 | Outpatient (CLI) | payer MEDICARE ==
--- NOTE | 2019-07-06 14:26 | MRI ---
EXAM DESCRIPTION: Thoracic Spine w/o Contrast: Magnetic Resonance Imaging. CLINICAL HISTORY: OTHER SPONDYLOSIS WITH RADICULOPATHY THORACIC REGION COMPARISON: Thoracic radiographs May 2019. TECHNIQUE: Multiplanar, multiple standard sequences, non contrast MRI, thoracic spine. FINDINGS: Circumscribed mass in the right posterior intradural extra medullary space at the T4-T5 level, impressing on the right posterior cord. Hyperintense T2 and STIR signal and hypointense T1 signal which is heterogeneous. Dimensions are 11.6 mm long axis and 9.3 x 7.4 mm in the transverse axis. No broad insertion on the cord or the posterior dura. No cord edema. T4-T5 disc is unremarkable with no canal or foraminal stenosis or significant facet arthrosis. Anterior endplate reactive changes at T2-T3. Minimal disc desiccation. Minimal disc desiccation at T1-T2 and posterior midline bulge with minimal bulging into the left foramen is well. Anterior right endplate reactive changes and disc space narrowing at T6-T7 minimal disc desiccation with no bulging. No canal or neural foraminal stenosis. Anterior endplate spurs to the right of midline and also at T7-T8 and T8-T9. Anterior disc desiccation and granulation at T8-T9 with no posterior disc bulge. Inferior T7 endplate Schmorl's node. No significant posterior bulging. No canal or neural foraminal stenosis these levels. Circumscribed hyperintense T1 and T2 hemangiomas in the posterior vertebral bodies at T8 and T9. Other discs with normal signal. Disc space are preserved. Canal and foramina are patent. Mid thoracic mild left convex curvatureFacet joints are unremarkable. Conus terminates mid to lower T12 vertebral body. Cord with normal signal, no compression.. No intramedullary lesions. Paravertebral soft tissues are unremarkable. Otherwise normal marrow signal in the remaining vertebral bodies and the posterior elements. Vertebral bodies are not compressed at any level. No other extra medullary intradural lesions. No extradural masses. IMPRESSION: 1. 11.6 x 9.3 x 7.4 mm circumscribed extra medullary, intradural mass at the T4-T5 disc space level. Hyperintense T2 and STIR signal and hypointense T1 signal. Minimal impression on the posterior right lateral cord. No broad attachment to the cord or posterior dura. No cord compression or cord edema signal. Appears to be a solitary lesion. Differential includes schwannoma, epidermoid, ependymoma, and solitary metastasis. Less likely to represent neurofibroma or meningioma. No other masses in the cord or the extradural space. Consider follow-up MRI scan with gadolinium IV contrast. 2. Multiple discs with desiccation and minimal bulging. Multiple levels of spondylosis. No canal or neural foraminal stenosis. Electronically signed by: Abraham Sewell MD 07/06/2019 2:[address] [facility]
== END ==
LOC: MRI 09:37
PROVIDERS: ATTEND Neurological Surgery
DX: M47.24 Other spondylosis with radiculopathy, thoracic region (principal); M51.34 Other intervertebral disc degeneration, thoracic region; R22.2 Localized swelling, mass and lump, trunk

== ENCOUNTER → 2019-11-27 | Outpatient (CLI) | payer MEDICARE ==
--- NOTE | 2019-11-27 10:27 | US ---
EXAM DESCRIPTION: Venous,Lower Extremity RT: ULTRASOUND. CLINICAL HISTORY: LOCALIZED EDEMA COMPARISON: Duplex ultrasound evaluation of the deep venous system of the left lower extremity in January 2019. TECHNIQUE: Yanez-scale and doppler sonographic evaluation of the deep venous system of the right lower extremity. FINDINGS: Doppler evaluation shows essentially absent color flow and decreased phasicity of the right femoral vein, right popliteal vein, and right peroneal vein. These the veins are not compressible with the transducer. The right common femoral vein, greater saphenous vein, junction with the CFV. And right posterior tibial vein demonstrate normal color flow and normal phasicity and augmentation. These lower extremity deep veins were completely compressible; normal occlusion with transducer pressure. Yanez-scale survey showed no echogenic thrombus within these veins. IMPRESSION: 1. Duplex ultrasound evaluation of the right lower extremity deep venous system showing thrombosis in the femoral vein, popliteal vein and peroneal vein. 2. Remaining deep venous veins in the right lower extremity are unremarkable. CRITICAL COMMUNICATION: The critical value was communicated directly by keypunch operator Ms. Radha Eller RDMS, (V) via phone call, with Dr. Robe Hassan's nurse, at approximately 955 hours, on November 27, 2019. The patient was transported to the doctor's office in good condition. Electronically signed by: Abraham Sewell MD 11/27/2019 10:25 AM CDT
== END ==
LOC: US 09:23
PROVIDERS: ATTEND Family Medicine
DX: I82.411 Acute embolism and thrombosis of right femoral vein (principal); I82.431 Acute embolism and thrombosis of right popliteal vein; I82.451 Acute embolism and thrombosis of right peroneal vein

== ENCOUNTER → 2019-12-13 | Outpatient (CLI) | payer MEDICARE ==
--- NOTE | 2019-12-13 21:01 | US ---
EXAM DESCRIPTION: Venous,Lower Extremity RT: ULTRASOUND. CLINICAL HISTORY: EDEMA COMPARISON: November 26. TECHNIQUE: Yanez-scale and doppler sonographic evaluation of the deep venous system of the right lower extremity. FINDINGS: Doppler evaluation shows normal color flow and normal phasicity and augmentation of the right common femoral vein, greater saphenous vein, junction with the CFV. , And posterior tibial vein. These veins were completely compressible to occlusion with transducer and nontender. No echogenic thrombus is seen on grayscale imaging. Abnormally decreased color flow and lack of phasicity and augmentation in the right femoral vein, right popliteal vein, and peroneal vein. These abnormal lower extremity deep veins were incompletely or non-compressible with transducer pressure. Yanez-scale survey showed varying degrees of echogenic thrombus within these veins. IMPRESSION: 1. Duplex ultrasound evaluation of the right lower extremity deep venous system showing partial or complete thrombosis in the right femoral vein, right popliteal vein, and right peroneal vein. No significant change since the prior study. 2. Remaining deep veins of the right lower extremity show no thrombosis. 3. The physician's office was notified by the collections analyst after the examination, and office advised the patient to go home and will await further instruction. Electronically signed by: Abraham Sewell MD 12/13/2019 9:00 PM CDT
--- NOTE | 2019-12-13 21:07 | US ---
EXAM DESCRIPTION: Extremity,Lower RT Arteries: Ultrasound. CLINICAL HISTORY: PVD COMPARISON: None. TECHNIQUE: Doppler evaluation of the right lower extremity arterial flow waveforms and velocities. FINDINGS: Arterial waveforms in the right lower extremity are multiphasic from the proximal BAGGING MACHINE OPERATOR through the right peroneal artery. Monophasic waveforms in the right WOOD HEEL FITTER MACHINE and the right dorsalis pedis artery.. 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 Consider correlation with CTA and vascular surgical consult. Electronically signed by: Abraham Sewell MD 12/13/2019 9:06 PM CDT
== END ==
LOC: US 10:00
PROVIDERS: ATTEND Family Medicine
DX: I82.411 Acute embolism and thrombosis of right femoral vein (principal); I82.431 Acute embolism and thrombosis of right popliteal vein; I82.451 Acute embolism and thrombosis of right peroneal vein; I73.9 Peripheral vascular disease, unspecified